=== PATIENT | male | born 1935 | race Two or more races ===

== ENCOUNTER 2019-11-15 16:25 | Inpatient (IN) | payer MEDICARE, MEDICAID ==
[~2019-11-15] VITALS: Ht 170.2 cm; Wt 68.0 kg
[2019-11-15 18:16] LABS: BASOPHILS % 0.6 % (0.0-2.0); EOSINOPHILS % 0.7 % (0.0-5.0); HEMATOCRIT. 46.6 % (42.0-52.0); LYMPHOCYTES % 36.3 % (20.0-50.0); MEAN CORPUSCULAR HEMOGLOBIN 31.2 pg (28.0-32.0); MEAN CORPUSCULAR VOLUME 90.8 fL (80.0-94.0); MEAN PLATELET VOLUME 9.6 fl (7.4-10.4); MONOCYTES % 5.2 % (2.0-8.0); NEUTROPHILS % 57.2 % (40.0-76.0); PLATELET 193 x1000/uL (130-400); RED BLOOD CELL COUNT 5.13 mill/uL (4.7-6.1); RED CELL DISTRIBUTION WIDTH 14.3 % (11.6-14.6)
[2019-11-15 18:20] LABS: CHLORIDE 106 mEq/L (98-107)
[2019-11-15 18:27] LABS: INR 1.2; PARTIAL THROMBOPLASTIN TIME 31.3 sec (23.4-31.0); PROTHROMBIN TIME 12.1 sec (9.6-11.0)
[2019-11-15] MEDS ORDERED: ASPIRIN 325MG EC TABLET PO ONE (20:30)
[2019-11-15] MEDS ORDERED: DOCUSATE SODIUM 100MG CAPSULE PO PRN (21:45)
[2019-11-15] MEDS ORDERED: ONDANSETRON HCL 4MG/2ML INJ IV PRN (21:45)
[2019-11-15] MEDS ORDERED: CLONIDINE 0.1MG TABLET PO PRN (21:45)
[2019-11-15] MEDS ORDERED: IPRATROPIUM/ALBUTEROL 0.5-3(2.5)MG/3ML NEB NEB PRN (21:45)
[2019-11-15] MEDS ORDERED: MAGNESIUM/ALUMINUM HYDROXIDE/SIMETHICONE 30ML UDC PO PRN (21:45)
[2019-11-15 23:40] LABS: CHLORIDE 107 mEq/L (98-107)
[2019-11-15 23:48] LABS: CREATINE KINASE 72 IU/L (39-308)
[2019-11-15 23:50] LABS: CREATINE KINASE MB FRACTION 1.9 ng/mL (0.5-3.6)
[2019-11-16 05:13] LABS: BASOPHILS % 0.5 % (0.0-2.0); EOSINOPHILS % 1.2 % (0.0-5.0); HEMATOCRIT. 42.8 % (42.0-52.0); LYMPHOCYTES % 31.1 % (20.0-50.0); MEAN CORPUSCULAR HEMOGLOBIN 31.6 pg (28.0-32.0); MEAN CORPUSCULAR VOLUME 90.1 fL (80.0-94.0); MEAN PLATELET VOLUME 8.8 fl (7.4-10.4); NEUTROPHILS % 61.2 % (40.0-76.0); PLATELET 178 x1000/uL (130-400); RED BLOOD CELL COUNT 4.75 mill/uL (4.7-6.1); RED CELL DISTRIBUTION WIDTH 14.1 % (11.6-14.6)
[2019-11-16 05:16] LABS: LDL CHOLESTEROL 54 mg/dL (5-100)
[2019-11-16 05:18] LABS: CREATINE KINASE 75 IU/L (39-308)
[2019-11-16 05:19] LABS: HDL CHOLESTEROL 38 mg/dL (40-59)
[2019-11-16 05:20] LABS: CREATINE KINASE MB FRACTION 2.1 ng/mL (0.5-3.6)
[2019-11-16] MEDS: ASPIRIN 81MG EC TABLET PO SCH (09:07)
[2019-11-16 10:17] LABS: CHLORIDE 108 mEq/L (98-107)
[2019-11-16] MEDS: ACETAMINOPHEN 325MG TABLET PO PRN (14:04)
[2019-11-16] MEDS: MORPHINE SULFATE 2 MG/ML CPJ (NOT FOR IM USE) IV PRN ×2 (15:45→22:31)
[2019-11-16 20:45] VITALS: BP 125/77
[2019-11-16 21:11] LABS: CLARITY URINE CLOUDY (CLEAR); COLOR URINE DARK YELLOW (YELLOW); KETONES URINE TRACE (NEGATIVE); LEUKOCYTE ESTERASE URINE 2+ (NEGATIVE); NITRITE URINE NEGATIVE (NEGATIVE); OCCULT BLOOD URINE TRACE (NEGATIVE); PROTEIN URINE NEGATIVE (NEGATIVE); SPECIFIC GRAVITY URINE 1.026 (1.005-1.030)
[2019-11-16 21:16] LABS: *AMPHETAMINES SCREEN URINE NEGATIVE (NEGATIVE); *BARBITURATES SCREEN URINE NEGATIVE (NEGATIVE); *BENZODIAZEPINES SCREEN URINE NEGATIVE (NEGATIVE); *COCAINE SCREEN URINE NEGATIVE (NEGATIVE)
[2019-11-16 21:17] LABS: CANNABINOID URINE SCREEN NEGATIVE (NEGATIVE); METHADONE URINE SCREEN NEGATIVE (NEGATIVE); OPIATES URINE SCREEN PRESUMTIVE POSITIVE (NEGATIVE); PHENCYCLIDINE URINE SCREEN NEGATIVE (NEGATIVE)
[2019-11-16 23:45] VITALS: BP_SYST 123; BP_SYST 125; BP_DIAS 69; BP_DIAS 77
[2019-11-17] VITALS: BP 125/77
[2019-11-17 04:00] VITALS: BP 138/81
[2019-11-17 08:00] VITALS: BP 117/68
[2019-11-17] MEDS: ASPIRIN 81MG EC TABLET PO SCH (09:19)
[2019-11-17 12:00] VITALS: BP 125/69
[2019-11-17] MEDS: CEFTRIAXONE 1 G PREMIX 50 ML IV SCH (12:00)
[2019-11-17] MEDS: ACETAMINOPHEN 325MG TABLET PO PRN (13:54)
[2019-11-17 16:00] VITALS: BP 149/87
[2019-11-17] MEDS ORDERED: ATOR40TA70 PO (20:05)
[2019-11-17] MEDS ORDERED: GABA250S4 PO (20:06)
[2019-11-17] MEDS ORDERED: [UNRECOGNIZED DRUG - OTHER] (20:08)
[2019-11-17] MEDS ORDERED: tam PO (20:10)
[2019-11-17] MEDS ORDERED: FINA1TAB18 MT (20:11)
[2019-11-18] VITALS: BP 138/77
[2019-11-18] MEDS: MORPHINE SULFATE 2 MG/ML CPJ (NOT FOR IM USE) IV PRN ×2 (01:11→08:41)
[2019-11-18 04:00] VITALS: BP 116/69
[2019-11-18 07:07] LABS: BASOPHILS % 0.3 % (0.0-2.0); EOSINOPHILS % 1.1 % (0.0-5.0); HEMATOCRIT. 42.5 % (42.0-52.0); HEMOGLOBIN. 14.8 g/dL (14.0-18.0); LYMPHOCYTES % 26.5 % (20.0-50.0); MEAN CORPUSCULAR HEMOGLOBIN 31.7 pg (28.0-32.0); MEAN CORPUSCULAR VOLUME 90.7 fL (80.0-94.0); MEAN PLATELET VOLUME 9.1 fl (7.4-10.4); MONOCYTES % 6.9 % (2.0-8.0); NEUTROPHILS % 65.2 % (40.0-76.0); PLATELET 173 x1000/uL (130-400); RED BLOOD CELL COUNT 4.68 mill/uL (4.7-6.1); RED CELL DISTRIBUTION WIDTH 14.4 % (11.6-14.6)
[2019-11-18 07:11] LABS: CHLORIDE 110 mEq/L (98-107)
[2019-11-18 08:00] VITALS: BP 128/71
[2019-11-18] MEDS: ASPIRIN 81MG EC TABLET PO SCH (08:41)
[2019-11-18] MEDS: CEFTRIAXONE 1 G PREMIX 50 ML IV SCH (10:34)
[2019-11-18 12:00] VITALS: BP_SYST 133; BP_SYST 99; BP_DIAS 51; BP_DIAS 69
[2019-11-18 16:00] VITALS: BP 113/68
[2019-11-18 20:00] VITALS: BP 116/68
[2019-11-19 04:00] VITALS: BP 107/74
[2019-11-19] MEDS: MORPHINE SULFATE 2 MG/ML CPJ (NOT FOR IM USE) IV PRN ×3 (06:09→17:25)
[2019-11-19 08:00] VITALS: BP 105/79
[2019-11-19] MEDS: ASPIRIN 81MG EC TABLET PO SCH (09:06)
[2019-11-19] MEDS: CEFTRIAXONE 1 G PREMIX 50 ML IV SCH (11:45)
[2019-11-19 12:00] VITALS: BP 108/60
[2019-11-19 16:00] VITALS: BP 124/66
[2019-11-19] MEDS: NYSTATIN POWDER 15GM TOP SCH ×2 (17:18→17:19)
[2019-11-19 20:00] VITALS: BP 120/62
[2019-11-20] VITALS: BP 133/58
[2019-11-20] MEDS: MORPHINE SULFATE 2 MG/ML CPJ (NOT FOR IM USE) IV PRN (00:55)
[2019-11-20 04:00] VITALS: BP 128/71
[2019-11-20 08:00] VITALS: BP 123/83
[2019-11-20] MEDS: ASPIRIN 81MG EC TABLET PO SCH (08:41)
[2019-11-20] MEDS: NYSTATIN POWDER 15GM TOP SCH ×3 (10:00→17:00)
[2019-11-20] MEDS: CEFTRIAXONE 1 G PREMIX 50 ML IV SCH (10:02)
[2019-11-20] MEDS ORDERED: ASPI-1158 PO ×2 (13:39→19:07)
[2019-11-20] MEDS ORDERED: NITR-87 MT ×3 (13:39→19:10)
[2019-11-20] MEDS ORDERED: ASPI-1158 MT (19:10)
[2019-11-20 19:19] VITALS: BP 147/79
[2019-11-20 20:00] VITALS: BP 147/79
== END 2019-11-20 22:00 | disposition home or self-care (01) | DRG 689 ==
LOC: ER 16:25 → MICUSO 20:18 → EDBEDREQ 20:22 → EDBEDREQTM 20:22 → 8WST 11-16 23:57
PROVIDERS: ADMIT Internal Medicine; ATTEND Internal Medicine
DX: N39.0 Urinary tract infection, site not specified (principal); G93.41 Metabolic encephalopathy; I69.354 Hemiplegia and hemiparesis following cerebral infarction affecting left non-dominant side; E44.1 Mild protein-calorie malnutrition; I10 Essential (primary) hypertension; B36.8 Other specified superficial mycoses; F17.200 Nicotine dependence, unspecified, uncomplicated; Z74.01 Bed confinement status; Z68.23 Body mass index [BMI] 23.0-23.9, adult
CPT/HCPCS: 36415; 71045; 80048; 80053; 80061; 80305; 81003; 82040; 82248; 82550; 82553; 82962; 83735; 83880; 84134; 84443; 84484; 85025; 87077; 87186; 92610; 93005; 93970; 97165; 99285; J0696; J2270